=== PATIENT | female | born 1960 | race Caucasian/White ===

== ENCOUNTER 2024-10-08 11:13 | Inpatient (IN) | payer MEDICAID ==
[~2024-10-08] VITALS: Ht 170.2 cm; Wt 72.7 kg
[~2024-10-08 11:13] MED LIST: ANAG1CAP10 PO; CYAN250010 PO; LOSA50TA64 PO; MULT-1249 PO; OSC500T PO; SERT-434 PO; UBID50TA3 PO
[2024-10-08 12:03] LABS: MEAN PLATELET VOLUME 8.0 FL (7.4-10.4); RED CELL DISTRIBUTION WIDTH 18.1 % (11.5-14.5)
[2024-10-08 12:14] LABS: CREATININE 0.91 MG/DL (0.40-0.90); TOTAL CARBON DIOXIDE 27.2 MMOL/L (24-32); eCRCL 62 ML/MIN; eGFR 62 ML/MIN
[2024-10-08 12:33] LABS: BANDS% (MANUAL) 5.0 % (0-10); LYMPHOCYTES % (MANUAL) 4.0 % (21-51); MONOCYTES % (MANUAL) 3.0 % (2-12); NEUTROPHILS % (MANUAL) 88.0 % (42-75); PLATELET ESTIMATE INCREASED
[2024-10-08 14:28] LABS: LEUKOCYTE ESTERASE ,URINE NEGATIVE (Neg); NITRITES, URINE NEGATIVE (Neg); OCCULT BLOOD,URINE NEGATIVE (Neg)
[2024-10-08 14:29] LABS: UA COLLECTION TYPE NON-SPECIFIED
[2024-10-08 14:31] LABS: URINE HCG NEGATIVE (NEG)
[2024-10-08 14:36] LABS: MUCUS STRANDS NONE SEEN /LPF (Neg); SQUAMOUS EPITHELIAL CELL,UR NONE SEEN /LPF (FEW)
--- NOTE | 2024-10-08 15:21 | Physician Documentation ---
History of Present Illness Chief Complaint: Abdominal Pain w/vomiting Stated Complaint: ABDOMINAL PAIN Time Seen by MD: 14:55 Primary Medical Doctor: [facility] Source: patient (9) Mode of Arrival: POV HPI Patient comes in for evaluation of abdominal pain. She reports that she awoke feeling relatively well yesterday morning but at 6:00 a.m. noted the onset of pain which she feels is in the lower quadrants bilaterally, worse centrally and to the left. She had a bowel movement and noted no change in the pain, and subsequently had one episode of diarrhea and one episode of vomiting, no blood in either. After taking some prabhu corinne she started to feel a little better and the pain resolved around 4:00 p.m. yesterday but recurred again at 8:00 a.m. this morning. Pain is in the same place, she reports it is worse when she walks or moves around and makes her have to walk carefully. Patient has had two episodes of vomiting today, no diarrhea. She denies any associated fever, dysu gopi, or hematuria. She has never had this sort of symptoms in the past Medication Reconciliation Allergies: Coded Allergies: No Known Allergies (Unverified , 05/17/16) Scheduled Cyanocobalamin (Vitamin B-12) (Vitamin B12), 1,000 MCG PO DAILY, (Reported) Gabapentin (Gabapentin), 3 CAP PO BID, (Reported) Multivitamin (Multivitamin), 1 TAB PO DAILY, (Reported) Sertraline HCl (Sertraline HCl), 1 TAB PO DAILY, (Reported) Sertraline HCl (Sertraline HCl), 3 TAB PO DAILY, (Reported) Discontinued Medications Anagrelide HCl (Anagrelide HCl), 1 CAP PO BID, (Reported) Discontinued Reason: patient no longer taking Calcium Carbonate* (Oscal*), 2 TAB PO DAILY, (Reported) Discontinued Reason: patient no longer taking Losartan Potassium (Losartan Potassium), 1 TAB PO DAILY, (Reported) Discontinued Reason: patient no longer taking Ubidecarenone (Coq10), 100 MG PO angélica, (Reported) Discontinued Reason: patient no longer taking Past Medical History Other Past Medical History: Essential thrombocythemia Past Surgical History: heart valve surgery (Mitral valve repair) Smoking Status: Never smoker Alcohol Use: None Drug Use: none Review of Systems All Other Systems at this time: Reviewed and Negative Physical Exam Vital Signs: Temperature: 98.8, Source: Oral, Heart Rate: 98, Respiratory Rate: 15, BP: 118/68, Pulse Oximetry: 97, Weight: 72.700 Oxygen Flow Rate: 0 Physical Exam General: Pt is awake, alert, oriented x4 in mild distress Head: Normocephalic and atraumatic. Eyes: Conjunctiva normal. ENT: Mucous membranes moist. Neck: Supple. Chest: Clear to auscultation bilaterally, without rales, rhonchi, or wheezes. There is no accessory muscle use or retractions. Cardiac: Regular rate and rhythm without murmurs, gallops or rubs. Palpation of the chest wall is normal. Abd: Soft, nondistended, tender diffusely through the lower quadrants, much worse at the left lower quadrant, with hypoactive bowel sounds. Some suggestion of rebound tenderness, and positive heel strike test. Extremities: Within normal limits without cyanosis, clubbing, or edema. Skin: Maynard, warm and dry with no significant rash appreciated. Neuro: Cranial nerves II-XII grossly intact. The gait is normal. Progress Results/Orders Results/Orders Orders - JERRY ROMERO MD Saline Lock (10/08/24 11:32) Nothing By Mouth (10/08/24 Dinner) Completed Orders - JERRY ROMERO MD Hcg, Ur Ql (10/08/24 11:32) Cbc/Diff (10/08/24 11:32) BMP (10/08/24 11:32) Lipase (10/08/24 11:32) CMP (10/08/24 11:32) Man Diff (10/08/24 11:40) Ua W/Microscopic, Cult If Ind (10/08/24 14:19) Vital Signs 10/08/24 10/08/24 10/08/24 11:28 14:20 14:20 Temp 98.8 98.8 Pulse 98 98 Resp 18 15 15 B/P (MAP) 121/73 118/68 (85) Pulse Ox 98 97 O2 Flow Rate 0 Laboratory Tests Test 10/08/24 11:40 10/08/24 14:19 White Blood Count 17.9 H Red Blood Count 5.25 Hemoglobin 14.8 Hematocrit 44.8 Mean Corpuscular Volume 85.4 Mean Corpuscular Hemoglobin 28.2 Mean Corpuscular Hemoglobin Concent 33.0 Red Cell Distribution Width 18.1 H Platelet Count 752 H Mean Platelet Volume 8.0 Neutrophils (%) (Auto) 93.3 H Lymphocytes (%) (Auto) 3.4 L Monocytes (%) (Auto) 3.2 Eosinophils (%) (Auto) 0 Basophils (%) (Auto) 0.1 Neutrophils # (Auto) 16.7 H Lymphocytes # (Auto) 0.6 L Monocytes # (Auto) 0.6 Eosinophils # (Auto) 0.0 Basophils # (Auto) 0.0 CBC Comment Differential Total Cells Counted 100 Neutrophils % (Manual) 88.0 H Band Neutrophils % 5.0 Lymphocytes % (Manual) 4.0 L Monocytes % (Manual) 3.0 Toxic Granulation 1+ Toxic Vacuolation 1+ Platelet Estimate Increased Red Blood Cell Morphology Perf Basophilic Stippling Anisocytosis 2+ Sodium Level 135 Potassium Level 4.6 Chloride Level 99 Carbon Dioxide Level 27.2 Anion Gap 9 Blood Urea Nitrogen 13 Creatinine 0.91 H Estimated GFR/1.73 m2 62 BUN/Creatinine Ratio 14.3 Glucose Level 140 H Calcium Level 9.8 Total Bilirubin 0.7 Aspartate Amino Transf (AST/SGOT) 15 Alanine Aminotransferase (ALT/SGPT) 23 Alkaline Phosphatase 104 Total Protein 8.6 H Albumin 4.4 Globulin 4.2 Albumin/Globulin Ratio 1.0 L Lipase 23 Chemistry Comments Urine Specimen Description Non-specified Urine Color Yellow Urine Clarity Clear Urine pH 6.5 Urine Specific Mitchell 1.015 Urine Protein Trace Urine Glucose (UA) Negative Urine Ketones Negative Urine Occult Blood Negative Urine Nitrite Negative Urine Bilirubin Negative Urine Urobilinogen 0.2 Urine Leukocyte Esterase Negative Urine RBC 0-2 Urine WBC None seen Urine Squamous Epithelial Cells None seen Urine Bacteria None seen Urine Mucus None seen Urine Culture Indicated Not ind Volume Urine Centrifuged 10 ml Urine HCG, Qualitative Negative Urine Comment Re-Evaluation Re-Evaluation : Re-Evaluation Time: 17:21 Progress Pt stable, awaiting CT result Consults/PCP Consults/PCP : Time Call Requested: 17:45 Consult Reason/Comments: Aliza and Hospitalist Additional Comment 17:45 Dr. Abrams will see. 17:52 Dr. Durant to admit Medical Decision Making Additional Comments Patient presenting with lower abdominal pain and signs of localized peritonitis, with symptoms worse over the suprapubic and left lower quadrant areas. The probability of infectious pathology was immediately identified, but diverticulitis or UTI felt to be more likely given the location of the pain. Patient with leukocytosis on laboratory testing, and CT scanning confirming appendicitis, with the appendix being located in a unusual position, thus accounting for the area of maximal tenderness. Patient admitted to the hospitalist service, antibiotics initiated, surgeon notified and will take patient for definitive care. Departure Time of Disposition: 17:47 Admitted to Inpatient Unit: yes, to hospitalist Impression: Primary Impression: Appendicitis Qualified Codes: K35.30 - Acute appendicitis with localized peritonitis, without perforation or gangrene Referrals: NO PRIMARY CARE PROVIDER (PCP) Education Educated: Patient Educated regarding: diagnosis, treatment Signature Scribe Signature: Attestation: JERRY ROMERO MD Oct 08, 2024 15:21
[2024-10-08] MEDS ORDERED: iohexol 300mg/ml 100ml inj. ONE (15:29)
[2024-10-08] MEDS: ondansetron/PF 4mg/2ml inj IV ONE (15:34)
[2024-10-08] MEDS: normal saline 1000ML IV soln IVB ONE (15:35)
--- NOTE | 2024-10-08 17:22 | RADIOLOGY REPORT ---
COMPUTERIZED TOMOGRAPHY ABDOMEN AND PELVIS WITH CONTRAST REASON FOR EXAM: ABD PAIN COMPARISON: None TECHNIQUE: The exam was performed on a Multidetector scanner. Spiral scans were acquired from the kiran phragm to the symphysis pubis after administration of IV contrast. 2-D coronal and sagittal reformatt ed images were provided. Radiation optimization: All CT scans at this facility use at least one of th naomie dose optimization techniques: Automated exposure control mA and/or kV adjustment per patient size (includes targeted exams where dose is matched to clinical indication) or iterative reconstruction. CONTRAST ADMINISTRATION: 100 mL omnipaque 300 intravenously RADIATION DOSE: CTDI: 19 mGy DLP: 927 mGy-cm FINDINGS: There is minimal dependent atelectasis in bilateral lower lobes of the lungs. There is no pleural ef fusion. There is no pericardial effusion. The spleen is not enlarged. The liver is normal in size and contour. The hepatic veins are patent. The portal vein is patent. No calcified gallstone is identified. There is pancreas divisum. The panc reas is otherwise unremarkable. The right adrenal gland is unremarkable. There is a 0.8 cm indetermin ate hypodensity in the left adrenal gland, statistically likely an adrenal adenoma. The kidneys enhan ce symmetrically. No solid renal mass is identified. There is a 0.8 cm fat density lesion of the infe rior pole of the left kidney consistent with angiomyolipoma. There is a 4.6 cm simple cyst at the sup erior pole of the left kidney which requires no dedicated follow-up. There is no hydronephrosis of ei ther kidney. The urinary bladder is unremarkable. There is no abdominal aortic aneurysm. There is no pathologic lymphadenopathy by size criteria. The uterus and ovaries are within normal limits. There is trace free fluid in the dependent pelvis, likely physiologic. There is mild scattered colonic div erticulosis without evidence of diverticulitis. There is an appendicolith within the base of the appe ndix. The appendix is fluid-filled and dilated at 1.3 cm. The appendix is thick walled. There is pe riappendiceal inflammatory stranding. There is no acute osseous abnormality identified. IMPRESSION: Acute appendicitis. Note that the appendix is located just superior to the bladder and uterine fundu s.
--- NOTE | 2024-10-08 17:56 | HISTORY AND PHYSICAL ---
History & Physical Providers to Chief complaint, abdominal pain History of Present Illness Reason for Admit\Complaint: As above History of Present Illness This is a 64 years old female with history of hypertension, mitral valve repair May 2023, me low proliferative disorder, anxiety/depression, presented today to emergency department chief complaint abdominal pain located infraumbilically right more than left,; in addition this is Patient who comes in for evaluation of abdominal pain. She reports that she awoke feeling relatively well yesterday morning but at 6:00 a.m. noted the onset of pain which she feels is in the lower quadrants bilaterally, worse centrally and to the left. She had a bowel movement and noted no change in the pain, and subsequently had one episode of diarrhea and one episode of vomiting, no blood in either. After taking some prabuh corinne she started to feel a little better and the pain resolved around 4:00 p.m. yesterday but recurred again at 8:00 a.m. this morning. Pain is in the same place, she reports it is worse when she walks or moves around and makes her have to walk carefully. Patient has had two episodes of vomiting today, no diarrhea. She denies any associated fever, dysuria, or hematuria. She has never had this sort of symptoms in the past. In emergency department patient was evaluated by physician and was diagnosed with acute appendicitis, started on IV antibiotics and after consultation with the surgeon decision was made to admit patient for further evaluation and treatment, no additional complaint or concern, Allergies: Coded Allergies: No Known Allergies (Unverified , 05/17/16) Active prescriptions I reviewed reconciled Home Medications Home Medications Active Reported Vitamin B12 (Cyanocobalamin (Vitamin B-12)) 2,500 Mcg Tablet 1,000 Mcg PO DAILY 30 Days Oscal* (Calcium Carbonate) 500 Mg Tablet 2 Tab PO DAILY Coq10 (Ubidecarenone) 50 Mg Tab.chew 100 Mg PO CORA Multivitamin 1 Each Tablet 1 Tab PO DAILY 30 Days Sertraline HCl 100 Mg Tablet 1 Tab PO DAILY Anagrelide HCl 1 Mg Capsule 1 Cap PO BID Losartan Potassium 50 Mg Tablet 1 Tab PO DAILY Past Medical History Past Medical History As in HPI Past Surgical History Surgical History Comment As in HPI Past Social History Social History Comment Deny illicit drug abuse tobacco alcohol use live with the family good social support Health Maintenance Health Maintenance Noncontributory ROS ROS Constitutional : no fever , no chills, or weakness. No diaphoresis. Allergic/Immunologic, no lymphadenopathy, no hives, no skin eruptions. Eyes, no recent visual changes, no eye pain, no photophobia. Ears, nose, mouth, throat, no sore throat, no nosebleed, no ear pain. Cardiovascular, no palpitations, skipped beats, chest pain, no peripheral edema, Respiratory, no dyspnea, orthopnea, cough, hemoptysis, chest wall pain. Gastrointestinal, positive for abdominal pain, nausea, vomiting, no constipation or diarrhea. : no dysuria, hematuria, pelvic pain, urethral d/c. Endocrine, no polyuria, polydipsia, recent unintentional weight gain or loss. Hematologic/Lymphatic, no petechiae, no enlarged lymph nodes, no bone pain. Integumentary, no rash, no skin lesions, Musculoskeletal, no muscle aches, or pain, no muscle cramps, no recent change in gait Neurological, no dizziness, no headache, no syncope, no paresthesia. Psychiatric, no delusions, visual hallucinations, or hearing hallucinations. ROS - in rest is as in HPI. Exam Vitals: Vital Signs Date Time Temp Pulse Resp B/P (MAP) Pulse Ox O2 Delivery O2 Flow Rate FiO2 10/08/24 14:20 15 10/08/24 14:20 98.8 98 97 0 Vital signs, stable ,afebrile. Pulse Oximetry reflects adequate oxygenation. BMI is twenty-five, weight 72 kg General: well developed, well nourished. Awake , alert, and oriented x4, resting comfortably in the bed, in no acute distress . Skin: Warm, dry, no pallor, no rash or petechiae. HEENT: Atraumatic, normocephalic, EOMI, anicteric sclera B; pink conjunctiva; PERRLA, normal oropharynx, moist oral and nasal mucosa. Tympanic membrane , nose , throat clear. Neck: Trachea midline. Supple, full range of motion, no JVD, bruit , hepatojugular reflex , lymphadenopathy or masses, or other lesions Cardiac: Regular rhythm, regular rate no murmurs, rubs, or gallops. Normal S1 and S2, no S3 noticed. PMI is normal. Respiratory: Equal breath sounds bilaterally, no tachypnea; lungs clear to auscultation bilaterally, no wheezing ,rub or rales, or crackles. Chest wall is symmetric and without deformity. No signs of trauma. Chest wall is nontender. No signs of respiratory distress. Resonance is normal upon percussion bilaterally. Gastrointestinal: Abdomen symmetric, non-distended, soft, tender to palpation right lower quadrant, normal bowel sounds x4 quadrant, normoactive, no hepatosplenomegaly , no masses , no bruit, no flank pain bilaterally. No voluntary guarding, rebound, or rigidity. No tenderness to percussion. No pulsatile masses. Equal femoral pulses. No Hdz's sign : Positive McBurney point tenderness. Back; no CVA tenderness bilaterally, no deformities. Neck and back are without deformity as well. No tenderness noted on palpation of the spinous processes. Spinous processes are midline. Cervical, thoracic, and lumbar paraspinal muscles are not tender and are without spasm. : Deferred by patient Musculoskeletal: Extremities, normal range of motion, non-tender, muscle strength 5/5 x 4. Negative Homans signs bilaterally on lower extremity. Distal pulses full symmetrical, no clubbing, cyanosis , edema. Neurological: Speech is clear, alert, and oriented x 4. No motor or sensory deficit, deep tendon reflexes normal, cerebellar intact. Cranial nerves II-XII intact. Psych: Alert and or appropriate, normal affect. Vascular: Good distal pulses, which are equal x4; capillary refill less than 2 seconds. Lymphatic, no lymphadenopathy. Diagnostic Data Last Recorded Lab Results: 10/08/24 1140 10/08/24 1140 Advance Care Planning Advanced Care plannin - 30 Minutes Additional Plan Assessment Acute appendicitis Hypertension fair control History of mitral valve repair May 2023 in our hospital Additional comorbidities, history of myeloproliferative disorder, anxiety/depression Plan IV fluids, antibiotics keep patient well hydrated euvolemic Pain control, IV p.o. analgesics Surgeon is on the case , evaluation and consultation pending Patient NPO IV Protonix I reconciled home medications DVT gastropathy prophylaxis addressed Sepsis Screening Reassessment Date: Oct 08, 2024 Date of Service: Oct 08, 2024 Billing Provider: SAMIR HERRERA MD Common Visit Codes: 32072-[id number] INP/OBS CARE (HIGH) Secondary Visit Codes: [id number] CARE PLAN ADDL 30MIN SAMIR HERRERA MD Oct 08, 2024 17:56
[2024-10-08] MEDS ORDERED: magnesium sulf-water 2g/50mL 50 ML IV PRN (18:00)
[2024-10-08] MEDS ORDERED: potassium Cl 20 mEq SR tablet PO PRN ×2 (18:00)
[2024-10-08] MEDS ORDERED: magnesium sulf-water 4G/100mL 100 ML IV PRN (18:00)
[2024-10-08] MEDS ORDERED: HYDROcodone/acetaminophen 10/325mg tab PO PRN (18:00)
[2024-10-08] MEDS ORDERED: HYDROmorphone inj. 0.5 MG/0.5 ML DISP.SYRIN IV PRN (18:00)
[2024-10-08] MEDS ORDERED: mag hydrox/Alum hydrox/simeth 30ml oral suspension PO PRN (18:00)
[2024-10-08] MEDS ORDERED: HYDROcodone/acetaminophen 5mg/325mg tablet PO PRN (18:00)
[2024-10-08] MEDS ORDERED: ondansetron 4mg rapidly disintigrating tab PO PRN (18:00)
[2024-10-08] MEDS ORDERED: magnesium Cl slow-release 64mg tablet PO PRN (18:00)
[2024-10-08] MEDS ORDERED: bisacodyl 10mg suppository rectal RC PRN (18:00)
[2024-10-08] MEDS ORDERED: potassium Cl 40MEQ/1/2NS 520ml 520 ML IV PRN (18:00)
[2024-10-08] MEDS: piperacillin/tazo 3.375gm/50ml 50 ML IV ONE (18:07)
[2024-10-08] MEDS: normal saline 1000ml 1,000 ML IV SCH (18:07)
[2024-10-08 18:27] LABS: PHOSPHORUS 3.0 MG/DL (2.3-4.5); PRO BRAIN NATRIURETIC PEPTIDE 802 PG/ML (0-125)
[2024-10-08 18:32] LABS: APTT 32 SECONDS (22-32); INR 1.2 INR
[2024-10-08] MEDS: docusate sod 100mg capsule PO SCH (20:00)
[2024-10-08] MEDS: K and/or MAG REPLACEMENT MC SCH (20:00)
--- NOTE | 2024-10-08 20:48 | PROGRESS NOTE ---
Progress Note ID Providers to CC ~ Progress Note Progress Note: pt seen and examined-findings consistent with appendicitis-pt needs rituo appmoni- possible open-discussed procedure including risks/benefits/alternatives TERRI ROTHMAN MD Oct 08, 2024 20:47
[2024-10-08] MEDS ORDERED: GABA-530 PO (21:07)
[2024-10-08] MEDS ORDERED: SERT-153 PO (21:07)
[2024-10-08 22:00] VITALS: BP 109/61; PULSE 96; RESP 18; TEMP 98.6; O2SAT 95
[2024-10-08 22:30] VITALS: RESP 18; O2SAT 95
[2024-10-09] VITALS (13 sets, daily range): BP systolic 103–131; BP diastolic 54–71; PULSE 82–92; RESP 12–20; TEMP 97.8–98.5; O2SAT 91–100
[2024-10-09] MEDS: piperacillin/tazo 4.5gm/100ml 100 ML IV SCH (02:10)
--- NOTE | 2024-10-09 06:21 | ELECTROCARDIOGRAPH REPORT ---
[facility] Test Date: 2024-10-09 Test Time: 03:27:45 Pat Name: ARMINDA BREWER Department: [facility] Patient ID: [facility]-[id number] Room: [place] [address] A Gender: F Yard Foreman: : 1960 Requested By: TERRI ROTHMAN Order Number: [id number] Reading MD: Dr. DORIE Puhg Measurements Intervals Dickens Rate: 85 P: 0 WV: 0 QRS: -43 QRSD: 120 T: 150 QT: 378 QTc: 450 Interpretive Statements Narrow complex rhythm, probably sinus rhythm Left anterior fascicular block LVH w/ repol abnormalities, possible ischemia Electronically Signed On 10-09-2024 16:45:[address] DORIE Pugh Please click the below link to view image of tracing.
[2024-10-09 06:35] LABS: MEAN PLATELET VOLUME 8.2 FL (7.4-10.4); RED CELL DISTRIBUTION WIDTH 18.1 % (11.5-14.5)
[2024-10-09] MEDS ORDERED: BUPIVAcaine 2.5mg/ml inj 50ml vial (contains preservative) ONE (06:53)
[2024-10-09 07:05] LABS: CREATININE 0.75 MG/DL (0.40-0.90); TOTAL CARBON DIOXIDE 23.7 MMOL/L (24-32); eCRCL 75 ML/MIN; eGFR 78 ML/MIN
[2024-10-09] MEDS ORDERED: pantoprazole 40MG/NS 100ML BAG 100 ML IV SCH (08:00)
--- NOTE | 2024-10-09 08:45 | RADIOLOGY REPORT ---
CHEST RADIOGRAPH Indication: PRE-OP, pain Technique: Single frontal view of the chest was obtained Comparison: None FINDINGS: Lines and Tubes: None Lungs: No focal consolidation. Pleura: No effusion. No pneumothorax. Cardiomediastinal contours: Unremarkable Bones: Median sternotomy. IMPRESSION: No acute cardiopulmonary disease.
[2024-10-09] MEDS ORDERED: fentaNYL/PF 50MCG/1 ML 2ML syringe ONE (08:59)
[2024-10-09] MEDS ORDERED: propofol inj 20 ML IV ONE (08:59)
[2024-10-09] MEDS ORDERED: rocuronium 10mg/ml inj IV ONE (08:59)
[2024-10-09] MEDS ORDERED: midazolam 1 mg/ML 2ml injection ONE (08:59)
[2024-10-09] MEDS ORDERED: hydrALAZINE 20mg/ml inj. IV PRN (09:05)
[2024-10-09] MEDS ORDERED: ondansetron/PF 4mg/2ml inj IV PRN ×2 (09:05→10:45)
[2024-10-09] MEDS ORDERED: HYDROmorphone/PF 0.2 MG/ML SYRINGE IV PRN ×2 (09:05)
[2024-10-09] MEDS ORDERED: labetalol 20mg/4ml (5mg/ml) syringe IV PRN (09:05)
[2024-10-09] MEDS: ringers solution, lacted 1,000 ML IV SCH (09:05)
[2024-10-09] MEDS ORDERED: acetaminophen 1,000mg/100ml IV 100 ML IV PRN (09:05)
[2024-10-09] MEDS: BUPIVAcaine/PF 2.5 mg/ml (0.25%) 30ml vial IJ ONE (09:50)
[2024-10-09] MEDS ORDERED: dexamethasone sod phosphate 4mg/ml inj. ONE (09:56)
[2024-10-09] MEDS ORDERED: ondansetron/PF 4mg/2ml inj ONE (09:56)
--- NOTE | 2024-10-09 10:38 | OPERATIVE REPORT ---
Operative Report Providers to CC CC: TERRI ROTHMAN MD ~ Date of Procedure: Oct 09, 2024 Pre-Operative Diagnosis: Acute appendicitis Post-Operative Diagnosis SAME as PRE-Op Procedure Performed kevin tinoco Surgeon: emely Silverlight Developer none Anesthesiologist: Cordell Feldman Type of Anesthesia: General Findings: appendicitis Estimated Blood Loss: min Specimen Removed: TERRI Barajas MD Oct 09, 2024 10:38
[2024-10-09] MEDS ORDERED: HYDROcodone/acetaminophen 5mg/325mg tablet PO PRN (10:45)
[2024-10-09] MEDS: morphine 4 MG/ML inj SYRINge IV PRN (11:11)
--- NOTE | 2024-10-09 14:32 | PROGRESS NOTE ---
Daily Progress Note Providers to CC Doing fine, tolerating medication fine, awaiting to go to OR today ~ Central Line/PICC still needed: No Saravia-Non Protocol Saravia Indications Met/Not Met: F/C Indications Not Met Antibiotic Timeout Antibiotic Ordered?: Yes MRSA Education MRSA Education Provided to pt: Yes Subjective As above Objective Vital Signs Date Time Temp Pulse Resp B/P (MAP) Pulse Ox O2 Delivery O2 Flow Rate FiO2 10/09/24 12:45 16 10/09/24 11:40 82 116/61 (79) 95 Nasal Cannula 2.0 10/09/24 10:34 97.3 Vital signs, stable ,afebrile. Pulse Oximetry reflects adequate oxygenation on 2 L oxygen nasal cannula General: well developed, well nourished. Awake , alert, and oriented x4, resting comfortably in the bed, in no acute distress . Skin: Warm, dry, no pallor, no rash or petechiae. HEENT: Atraumatic, normocephalic, EOMI, anicteric sclera B; pink conjunctiva; PERRLA, normal oropharynx, moist oral and nasal mucosa. Tympanic membrane , nose , throat clear. Neck: Trachea midline. Supple, full range of motion, no JVD, bruit , hepatojugular reflex , lymphadenopathy or masses, or other lesions Cardiac: Regular rhythm, regular rate no murmurs, rubs, or gallops. Normal S1 and S2, no S3 noticed. PMI is normal. Respiratory: Equal breath sounds bilaterally, no tachypnea; lungs clear to auscultation bilaterally, no wheezing ,rub or rales, or crackles. Chest wall is symmetric and without deformity. No signs of trauma. Chest wall is nontender. No signs of respiratory distress. Resonance is normal upon percussion bilaterally. Gastrointestinal: Abdomen symmetric, non-distended, soft, mild tender to palpation right lower quadrant, normal bowel sounds x4 quadrant, normoactive, no hepatosplenomegaly , no masses , no bruit, no flank pain bilaterally. No voluntary guarding, rebound, or rigidity. No tenderness to percussion. No pulsatile masses. Equal femoral pulses. No Hdz's sign ;, positive McBurney point tenderness. Back; no CVA tenderness bilaterally, no deformities. Neck and back are without deformity as well. No tenderness noted on palpation of the spinous processes. Spinous processes are midline. Cervical, thoracic, and lumbar paraspinal muscles are not tender and are without spasm. Musculoskeletal: Extremities, normal range of motion, non-tender, muscle strength 5/5 x 4. Negative Homans signs bilaterally on lower extremity. Distal pulses full symmetrical, no clubbing, cyanosis , edema. Neurological: Speech is clear, alert, and oriented x 4. No motor or sensory deficit, deep tendon reflexes normal, cerebellar intact. Cranial nerves II-XII intact. Psych: Alert and or appropriate, normal affect. Vascular: Good distal pulses, which are equal x4; capillary refill less than 2 seconds. Lymphatic, no lymphadenopathy. Result Diagram: 10/09/24 0559 10/09/24 0559 Coagulation Studies Laboratory Tests Test 10/08/24 18:13 Prothrombin Time 11.7 SECONDS (9.0-12.0) INR International Normalized Ratio 1.2 INR Activated Partial Thromboplast Time 32 SECONDS (22-32) Coagulation Comments Problem\Assessment\Plan Assessment Acute appendicitis Hypertension fair control History of mitral valve repair May 2023 in our hospital Additional comorbidities, history of myeloproliferative disorder, anxiety/depression Plan IV fluids, antibiotics keep patient well hydrated euvolemic Pain control, IV p.o. analgesics Surgeon is on the case , awaiting to go to OR today Patient NPO IV Protonix I reconciled home medications DVT gastropathy prophylaxis addressed Sepsis Screening Reassessment Date: Oct 09, 2024 Date of Service: Oct 09, 2024 Billing Provider: SAMIR HERRERA MD Common Visit Codes: [id number] INP/OBS CARE(HIGH) SAMIR HERRERA MD Oct 09, 2024 14:32
[2024-10-09] MEDS: HYDROmorphone inj. 0.5 MG/0.5 ML DISP.SYRIN IV PRN (16:18)
[2024-10-10 02:00] VITALS: BP 138/69; PULSE 89; RESP 15; TEMP 97.6; O2SAT 97
--- NOTE | 2024-10-10 02:22 | CONSULTATION ---
DATE OF CONSULTATION: 10/08/2024 DICTATING PHYSICIAN: Devonte Abrams MD REASON FOR CONSULTATION: Evaluation of abdominal pain. HISTORY OF PRESENT ILLNESS: The patient is a 64-year-old female who presented to the ER with complaints of abdominal discomfort. CAT scan revealed evidence of appendicitis. Surgical evaluation is now requested. On further questioning, the patient has had pain for the past day and a half of the lower abdomen, worse on the left. She has had some diarrhea and vomiting. PAST MEDICAL HISTORY: Notable for thrombocytopenia. PAST SURGICAL HISTORY: Mitral valve repair. HOME MEDICATIONS: Include anagrelide, sertraline, vitamin supplements. ALLERGIES: None. SOCIAL HISTORY: No tobacco or alcohol use. REVIEW OF SYSTEMS: See H and P. PHYSICAL EXAMINATION: GENERAL: A well-nourished female in no distress. VITAL SIGNS: Unremarkable. HEART: Regular rate and rhythm. LUNGS: Clear to auscultation. ABDOMEN: Some mild abdominal discomfort. EXTREMITIES: Unremarkable. NEUROLOGIC: Nonfocal. LABORATORY DATA: Include a WBC of 17, hematocrit of 44, platelet count is 732. Chemistries are unremarkable. IMAGING STUDIES: CAT scan revealed evidence of acute appendicitis. IMPRESSION: Acute appendicitis. Status post mitral valve repair. PLAN: * Admit. * IV antibiotics. * Robotic appendectomy, possible open. Devonte Abrams MD TID: [id number] RECEIPT: [id number]/[id number]
--- NOTE | 2024-10-10 02:31 | OPERATIVE REPORT ---
DATE OF SURGERY: 10/09/2024 DICTATING PHYSICIAN: Devonte Abrams MD PREOPERATIVE DIAGNOSIS: Appendicitis. POSTOPERATIVE DIAGNOSIS: Appendicitis. PROCEDURE PERFORMED: Robotic appendectomy. SURGEON: Devonte Abrams MD SLEEPING CAR PORTER: None. ANESTHESIA: General/Dr. Feldman. DRAINS: None. INDICATIONS FOR OPERATION: A 64-year-old female, presented to the ER with complaints of abdominal pain, found to have acute appendicitis, taken to surgery for robotic appendectomy. INTRAOPERATIVE FINDINGS: Acute appendicitis. DESCRIPTION OF PROCEDURE: The patient was placed supine on the operating table. After induction of general anesthesia and placement of endotracheal tube, the abdomen was prepped and draped. A supraumbilical incision was then made after timeout was performed. A 12-mm port placed using open technique. Pneumoperitoneum was begun by insufflation of CO2. Additional ports were then placed, one on the left and one on the right. Robot was then brought to the field. Camera port docked. Camera placed, camera targeted. Additional ports were then docked and instruments placed. Abdomen was then explored. found to have acute appendicitis. Appendix was then mobilized the pelvis. Appendiceal and cecal junction was identified, isolated, ligated and divided using an Endo-JOHNATHAN stapler. The appendiceal mesentery likewise ligated and divided using an Endo-JOHNATHAN stapler. There was a small serosal tear on the cecum from the grasper. This was repaired using a suture of 2-0 V-Loc. Hemostasis was found to be adequate. Robotic instruments were removed. Robot undocked from the field. was placed in Endobag using a laparoscope. Abdomen was then copiously irrigated with large amount of antibiotic-containing solution. After removing the Endobag, final port and camera then withdrawn. Ports were then removed with no evidence of active bleeding. Pneumoperitoneum was evacuated. Wounds were closed in layers. Skin was closed with subcuticular stitch. Dressings applied. The patient was transferred to recovery in stable condition. Devonte Abrams MD TID: [id number] RECEIPT: [id number] KB/VUHoward
[2024-10-10 05:58] LABS: MEAN PLATELET VOLUME 8.2 FL (7.4-10.4); RED CELL DISTRIBUTION WIDTH 18.0 % (11.5-14.5)
[2024-10-10 06:30] VITALS: BP 120/58; PULSE 75; RESP 15; TEMP 97.3; O2SAT 98
[2024-10-10 06:30] LABS: CREATININE 0.60 MG/DL (0.40-0.90); TOTAL CARBON DIOXIDE 23.9 MMOL/L (24-32); eCRCL 93 ML/MIN; eGFR > 90 ML/MIN
[2024-10-10 10:00] VITALS: BP 130/62; PULSE 79; RESP 16; TEMP 97.1; O2SAT 95
[2024-10-10] MEDS ORDERED: PANT40TA54 PO (10:31)
[2024-10-10] MEDS ORDERED: ASPI81TA52 PO (10:31)
[2024-10-10] MEDS ORDERED: METR-159 PO (10:31)
[2024-10-10] MEDS: ondansetron/PF 4mg/2ml inj IV PRN (10:35)
[2024-10-10] MEDS: magnesium hydroxide 30ml (MOM) UD suspension PO PRN (10:59)
--- NOTE | 2024-10-10 14:03 | DISCHARGE SUMMARY ---
Discharge Summary Providers to CC ~ Discharge Summary Admission Diagnosis: Acute appendicitis Hospital Course DATE OF ADMISSION: 10/08/24 DATE OF DISCHARGE: 10/10/24 Discharge Diagnosis\Comment: Acute appendicitis s/p appendectomy (10/09/24) Sepsis 2/2 appendicitis- POA Hypertension Hx mitral valve repair Hx myeloproliferative disorder Anxiety disorder Depression Operations\Procedures: Robotic appendectomy Consultants: Surgeon Devonte Salguero Complications: None Condition on DC: Stable New Medications: Aspirin (Aspirin EC) 81 Mg Tablet.dr 1 TAB PO DAILY for 30 Days, #30 TAB Ciprofloxacin HCl (Ciprofloxacin HCl) 500 Mg Tab 1 TAB PO BID for 7 Days, #14 TAB Metronidazole* (Flagyl*) 500 Mg Tablet 1 TAB PO Q8H for 7 Days, #21 TAB Pantoprazole Sodium (Pantoprazole Sodium) 40 Mg Tablet.dr 40 MG PO DAILY for 30 Days, #30 TAB.SR Continued Medications: Cyanocobalamin (Vitamin B-12) (Vitamin B12) 2,500 Mcg Tablet 1000 MCG PO DAILY for 30 Days, #30 TAB 0 Refills Gabapentin (Gabapentin) 100 Mg Capsule 3 CAP PO BID for 30 Days, #90 CAP 0 Refills Multivitamin (Multivitamin) 1 Each Tablet 1 TAB PO DAILY for 30 Days, #30 TAB 0 Refills Sertraline HCl (Sertraline HCl) 50 Mg Tablet 3 TAB PO DAILY for 30 Days, #30 TAB Discontinued Medications: Sertraline HCl (Sertraline HCl) 100 Mg Tablet 1 TAB PO DAILY Discharge Summary: Hospital Course Darcie Lewis is a 64-year-old female with a past medical history of hypertension and s/p mitral valve repair who presented to the ED with chief complaint of acute onset lower quadrant abdominal pain x [address] abdomen/pelvis revealed acute appendicitis. Other notable findings were findings of sepsis. Patient was started on intravenous fluids and empirical antibiotics. Surgeon Dr. Abrams was consulted and patient underwent robotic appendectomy on 10/09/24 without complication. Patient did not experience further complications throughout the entire hospital stay and made a good recovery. Patient was seen and examined on the day of discharge. On day of discharge, vss and labs notable for resolving leukocytosis. All labs, diagnostic workups, discharge plan discussed with patient in details during visit before discharge. All questions and concerns answered to the best of my professional knowledge. Patient is cleared for discharge from surgical standpoint. Patient is to be discharged to home to self and to follow up with PCP and surgeon Dr. Abrams within 1-2 weeks. Physical Exam General: A&Ox 3, NAD HEENT: Normocephalic, PERRLA Neck: Supple, trachea midline, no JVD Chest: Clear to auscultation bilaterally Cardiovascular: RRR, S1&S2 GI: Soft and nontender Extremities: No cyanosis/clubbing/or edema ADULT SERVICES LIBRARIAN: CN II-XII intact, no focal deficits Musculoskeletal: No paraspinal muscle tenderness, no muscle spasm Skin: Warm and intact *Problems/Diagnosis: (1) Appendicitis Status: Acute Total Time Spent on D/C: > 30 Minutes Date of Service: Oct 10, 2024 Billing Provider: DEVIN MONROE Common Visit Codes: 75033-HEZ/OBS DISCH DAY >30min Problem Qualifiers (1) Appendicitis: Qualified Codes: K35.30 - Acute appendicitis with localized peritonitis, with out perforation or gangrene DEVIN MONROE Oct 10, 2024 14:03
[2024-10-10] MEDS ORDERED: CIPR-458 PO (14:41)
== END 2024-10-10 16:30 | disposition home or self-care (01) | DRG 710 ==
LOC: ER 11:13 → ED HOLD 18:01 → ORTHO 4S 21:22
PROVIDERS: ADMIT Family Medicine; ATTEND Family Medicine
PROC: BW211ZZ Computerized Tomography (CT Scan) of Abdomen and Pelvis using Low Osmolar Contrast (ICD-10-PCS; 2024-10-08)
PROC: 8E0W4CZ Robotic Assisted Procedure of Trunk Region, Percutaneous Endoscopic Approach (ICD-10-PCS; 2024-10-09)
PROC: 0DTJ4ZZ Resection of Appendix, Percutaneous Endoscopic Approach (ICD-10-PCS; principal; 2024-10-09 09:16)
DX: A41.9 Sepsis, unspecified organism (principal); F32.A Depression, unspecified; I10 Essential (primary) hypertension; K35.30 Acute appendicitis with localized peritonitis, without perforation or gangrene; F41.9 Anxiety disorder, unspecified
CPT/HCPCS: 36415; 71045; 74177; 80053; 81001; 81025; 82948; 83690; 83735; 83880; 84100; 85007; 85025; 85610; 85730; 87081; 93005; 96361; 96374; 97116; 97161; 97530; 99285; A4215; A4314; A4615; A4618; G0378; J1100; J1171; J2250; J2270; J2405; J2470; J2543; J2704; J3010; J3490; J7030; J7040; J7120; Q9967